=== PATIENT | male | born 1990 | race African-American/Black ===

== ENCOUNTER 2023-01-30 23:21 | Emergency (ER) | payer OTHER ==
[~2023-01-30] VITALS: Ht 177.8 cm; Wt 88.6 kg
[~2023-01-30 23:21] MED LIST: AMOXICILLIN 8751 TAB PO; DOXYCYCLINE 10100 MG PO; MINIPRESS2 MG PO; NO HOME MEDICATIONS; PEN-VEE K500 MG PO; PREDNISONE20 MG PO; ZITHROMAX Z PA250 MG PO; ZOLOFT 100MG100 MG PO; ZOLOFT 50MG50 MG
[2023-01-30 23:25] VITALS: TEMP 98
[2023-01-30] MEDS ORDERED: POLYMYXIN B/TRIMETH OU (23:45)
[2023-01-31 00:26] VITALS: BP 117/82; PULSE 80
== END 2023-01-31 00:27 | disposition home or self-care (01) ==
LOC: COL.ER 23:21
DX: H10.9 Unspecified conjunctivitis (principal); Z28.310 Unvaccinated for COVID-19

== ENCOUNTER 2023-03-11 22:42 | Emergency (ER) | payer OTHER ==
[~2023-03-11] VITALS: Ht 175.3 cm; Wt 88.6 kg
[~2023-03-11 22:42] MED LIST changes: +POLYMYXIN B/TRIMETH OU
[2023-03-12 00:06] LABS: STREP SCREEN NEGATIVE
[2023-03-12 00:37] LABS: MONOSCREEN NEGATIVE
[2023-03-12 00:54] VITALS: BP 129/83; PULSE 74; TEMP 98.1
== END 2023-03-12 00:54 | disposition home or self-care (01) ==
LOC: COL.ER 22:42
PROVIDERS: Physician Assistant
DX: J02.9 Acute pharyngitis, unspecified (principal); Z28.310 Unvaccinated for COVID-19